=== PATIENT | male | born 1960 | race Caucasian/White ===

== ENCOUNTER 2016-11-11 18:35 | Emergency (ER) | payer MEDICAID ==
[~2016-11-11] VITALS: Ht 175.3 cm; Wt 75.0 kg
[2016-11-11] MEDS ORDERED: ONDANSETRON 2MG/ML, 2ML ONE (18:57)
[2016-11-11] MEDS ORDERED: MORPHINE SULFATE 4 MG/ML, 1ML ONE (18:57)
[2016-11-11] MEDS ORDERED: SODIUM CHLORIDE 0.9% 1,000ML IVBOLUS ONE (19:00)
[2016-11-11] MEDS ORDERED: ONDANSETRON 2MG/ML, 2ML IVPush ONE (19:00)
[2016-11-11] MEDS ORDERED: MORPHINE SULFATE 4 MG/ML, 1ML IVPush PRN (19:00)
[2016-11-11] MEDS ORDERED: SODIUM CHLORIDE FLUSH 10ML SYR IVF ONE (19:00)
[2016-11-11 19:21] LABS: ASPARTATE AMINO TRANSFERASE 50 U/L (15-37); BLOOD UREA NITROGEN 6 mg/dL (7-18)
[2016-11-11 20:18] VITALS: BP 140/82
== END 2016-11-11 20:36 | disposition home or self-care (01) ==
LOC: ED 19:46
DX: R10.11 Right upper quadrant pain (principal); R10.84 Generalized abdominal pain; B18.2 Chronic viral hepatitis C; K74.60 Unspecified cirrhosis of liver; E11.9 Type 2 diabetes mellitus without complications; I10 Essential (primary) hypertension; Z87.891 Personal history of nicotine dependence
CPT/HCPCS: 36415; 76700; 80053; 83605; 83690; 84145; 85025; 85610; 85730; 96361; 96374; 96375; 99285; J2405; J7030

== ENCOUNTER 2017-01-16 08:35 | Inpatient (IN) | payer MEDICAID ==
[~2017-01-16] VITALS: Ht 175.3 cm; Wt 76.3 kg
[2017-01-16] MEDS ORDERED: SODIUM CHLORIDE 0.9% 1,000 ML IV ONE (08:52)
[2017-01-16] MEDS ORDERED: ONDANSETRON 2MG/ML, 2ML ONE ×2 (08:57→10:37)
[2017-01-16] MEDS ORDERED: FAMOTIDINE 20 MG/2 ML ONE (08:57)
[2017-01-16] MEDS ORDERED: SODIUM CHLORIDE FLUSH 10ML SYR IVF ONE (09:00)
[2017-01-16] MEDS ORDERED: ONDANSETRON 2MG/ML, 2ML IVPush ONE ×2 (09:00→11:00)
[2017-01-16] MEDS ORDERED: FAMOTIDINE 20 MG/2 ML IVP ONE (09:00)
[2017-01-16] MEDS ORDERED: CEFTRIAXONE PMX 1GM/50ML 50 ML IV ONE (09:30)
[2017-01-16 09:51] LABS: ASPARTATE AMINO TRANSFERASE 70 U/L (15-37); BLOOD UREA NITROGEN 12 mg/dL (7-18)
[2017-01-16] MEDS ORDERED: METF500T4 PO (10:20)
[2017-01-16 10:21] LABS: HEMATOCRIT 46.6 % (39.2-51.8)
[2017-01-16] MEDS ORDERED: MORPHINE SULFATE 4 MG/ML, 1ML ONE (10:37)
[2017-01-16] MEDS ORDERED: CEFTRIAXONE PMX 1GM/50ML 50 ML ONE (10:40)
[2017-01-16] MEDS ORDERED: morphine SULFATE 10 MG/ML, 1ML IVPush ONE (11:00)
[2017-01-16] MEDS ORDERED: SODIUM CHLORIDE 0.9% 1,000ML IVBOLUS ONE (11:00)
[2017-01-16] MEDS ORDERED: LIDOCAINE 1%, 20ML ONE (11:24)
[2017-01-16] MEDS ORDERED: CALCIUM GLUCONATE 0.46MEQ/1ML IVPush ONE (13:00)
[2017-01-16] MEDS ORDERED: CALCIUM GLUCONATE 4.6 MEQ/10 ML ONE (13:01)
[2017-01-16] MEDS ORDERED: CEFTRIAXONE PMX 2GM/50ML 50 ML IV SCH (14:30)
[2017-01-16] MEDS ORDERED: hydrALAzine 20 MG/ML, 1ML IV PRN (14:30)
[2017-01-16] MEDS ORDERED: METRONIDAZOLE PMX 500MG/100ML 100 ML ONE (14:46)
[2017-01-16] MEDS ORDERED: CEFTRIAXONE PMX 2GM/50ML 50 ML ONE (14:46)
[2017-01-16] MEDS: METRONIDAZOLE PMX 500MG/100ML 100 ML IV SCH ×2 (14:55→22:12)
[2017-01-16] MEDS ORDERED: LORazepam 2 MG/ML, 1ML IVPush PRN (15:00)
[2017-01-16] MEDS: LACTULOSE 20 GM/30 ML UDC PO SCH ×2 (16:00→20:30)
[2017-01-16 16:30] VITALS: BP 180/107
[2017-01-16 17:08] VITALS: BP 159/93
[2017-01-16] MEDS ORDERED: METOPROLOL TARTRATE 50 MG TABLET PO SCH (18:00)
[2017-01-16 18:14] VITALS: BP 169/89
[2017-01-16] MEDS: ONDANSETRON 2MG/ML, 2ML IVPush PRN (18:37)
[2017-01-16] MEDS: LISINOPRIL 20 MG TABLET PO SCH (20:29)
[2017-01-16] MEDS: RIFAXIMIN 550 MG TABLET PO SCH (20:29)
[2017-01-16] MEDS: morphine SULFATE 10 MG/ML, 1ML IVPush PRN (20:30)
[2017-01-17 01:09] VITALS: BP 119/63
[2017-01-17] MEDS: LACTULOSE 20 GM/30 ML UDC PO SCH ×4 (05:12→20:49)
[2017-01-17 05:58] LABS: HEMATOCRIT 43.5 % (39.2-51.8); HEMOGLOBIN 14.9 g/dL (13.7-18.0); WHITE BLOOD COUNT 9.1 x10^3/uL (3.4-10)
[2017-01-17] MEDS: METRONIDAZOLE PMX 500MG/100ML 100 ML IV SCH ×3 (06:05→22:30)
[2017-01-17 06:24] LABS: ASPARTATE AMINO TRANSFERASE 35 U/L (15-37); BLOOD UREA NITROGEN 17 mg/dL (7-18)
[2017-01-17 08:00] VITALS: BP 120/66
[2017-01-17] MEDS ORDERED: MORPHINE SULFATE 4 MG/ML, 1ML ONE ×2 (08:52→14:48)
[2017-01-17] MEDS: RIFAXIMIN 550 MG TABLET PO SCH ×2 (08:57→20:49)
[2017-01-17] MEDS: morphine SULFATE 10 MG/ML, 1ML IVPush PRN ×3 (08:57→20:49)
[2017-01-17] MEDS: ZINC SULFATE 220 MG CAPSULE PO SCH (08:57)
[2017-01-17] MEDS: FUROSEMIDE 40 MG TABLET PO SCH (08:58)
[2017-01-17] MEDS: SPIRONOLACTONE 100 MG TABLET PO SCH (08:58)
[2017-01-17] MEDS: LISINOPRIL 20 MG TABLET PO SCH ×2 (08:58→20:50)
[2017-01-17 11:16] VITALS: BP 120/66
[2017-01-17] MEDS: CEFTRIAXONE PMX 2GM/50ML 50 ML IV SCH (11:17)
[2017-01-17 13:31] VITALS: BP 137/79
[2017-01-17 19:18] VITALS: BP 128/70
[2017-01-18 03:34] VITALS: BP 152/81
[2017-01-18] MEDS: LACTULOSE 20 GM/30 ML UDC PO SCH ×4 (05:20→19:58)
[2017-01-18] MEDS: METRONIDAZOLE PMX 500MG/100ML 100 ML IV SCH ×3 (06:01→22:29)
[2017-01-18 06:28] LABS: HEMATOCRIT 42.8 % (39.2-51.8); HEMOGLOBIN 14.8 g/dL (13.7-18.0); WHITE BLOOD COUNT 5.4 x10^3/uL (3.4-10)
[2017-01-18 06:32] VITALS: BP 135/73
[2017-01-18 06:53] LABS: ASPARTATE AMINO TRANSFERASE 34 U/L (15-37); BLOOD UREA NITROGEN 16 mg/dL (7-18)
[2017-01-18] MEDS: SPIRONOLACTONE 100 MG TABLET PO SCH (09:18)
[2017-01-18] MEDS: RIFAXIMIN 550 MG TABLET PO SCH ×2 (09:18→19:58)
[2017-01-18] MEDS: FUROSEMIDE 40 MG TABLET PO SCH (09:19)
[2017-01-18] MEDS: LISINOPRIL 20 MG TABLET PO SCH ×2 (09:19→19:58)
[2017-01-18] MEDS: ZINC SULFATE 220 MG CAPSULE PO SCH (09:19)
[2017-01-18] MEDS: CEFTRIAXONE PMX 2GM/50ML 50 ML IV SCH (12:38)
[2017-01-18 14:30] VITALS: BP 129/78
[2017-01-18 18:25] VITALS: BP 132/72
[2017-01-18] MEDS ORDERED: POTASSIUM PHOSPHATE 44 MEQ in SODIUM CHLORIDE 0.9% 500 ML IV ONE (19:00)
[2017-01-18] MEDS: morphine SULFATE 10 MG/ML, 1ML IVPush PRN (19:59)
[2017-01-19 00:53] VITALS: BP 132/80
[2017-01-19] MEDS: LACTULOSE 20 GM/30 ML UDC PO SCH ×4 (05:43→22:44)
[2017-01-19] MEDS: METRONIDAZOLE PMX 500MG/100ML 100 ML IV SCH ×3 (06:20→22:44)
[2017-01-19 06:27] LABS: ASPARTATE AMINO TRANSFERASE 46 U/L (15-37); BLOOD UREA NITROGEN 11 mg/dL (7-18)
[2017-01-19 07:37] VITALS: BP 113/60
[2017-01-19] MEDS: SPIRONOLACTONE 100 MG TABLET PO SCH (08:41)
[2017-01-19] MEDS: RIFAXIMIN 550 MG TABLET PO SCH ×3 (08:41→20:05)
[2017-01-19] MEDS: LISINOPRIL 20 MG TABLET PO SCH ×2 (08:41→20:05)
[2017-01-19] MEDS: ZINC SULFATE 220 MG CAPSULE PO SCH (08:41)
[2017-01-19] MEDS: FUROSEMIDE 40 MG TABLET PO SCH (09:00)
[2017-01-19] MEDS: CEFTRIAXONE PMX 2GM/50ML 50 ML IV SCH (09:52)
[2017-01-19] MEDS: morphine SULFATE 10 MG/ML, 1ML IVPush PRN ×3 (13:24→20:05)
[2017-01-19 14:13] VITALS: BP 141/92
[2017-01-19 18:42] VITALS: BP 131/75
[2017-01-20 01:18] VITALS: BP 149/82
[2017-01-20] MEDS: morphine SULFATE 10 MG/ML, 1ML IVPush PRN ×5 (02:19→19:55)
[2017-01-20 06:24] LABS: BLOOD UREA NITROGEN 8 mg/dL (7-18)
[2017-01-20 06:28] LABS: ASPARTATE AMINO TRANSFERASE 67 U/L (15-37)
[2017-01-20] MEDS: LACTULOSE 20 GM/30 ML UDC PO SCH ×5 (06:33→19:56)
[2017-01-20] MEDS: METRONIDAZOLE PMX 500MG/100ML 100 ML IV SCH ×3 (06:33→22:31)
[2017-01-20 08:15] VITALS: BP 127/70
[2017-01-20] MEDS: RIFAXIMIN 550 MG TABLET PO SCH ×2 (08:55→19:55)
[2017-01-20] MEDS: ZINC SULFATE 220 MG CAPSULE PO SCH (08:55)
[2017-01-20] MEDS: LISINOPRIL 20 MG TABLET PO SCH ×2 (08:55→19:56)
[2017-01-20] MEDS: FUROSEMIDE 40 MG TABLET PO SCH (08:56)
[2017-01-20] MEDS: SPIRONOLACTONE 100 MG TABLET PO SCH (08:56)
[2017-01-20] MEDS: CEFTRIAXONE PMX 2GM/50ML 50 ML IV SCH (10:14)
[2017-01-20] MEDS ORDERED: MORPHINE SULFATE 4 MG/ML, 1ML ONE ×2 (10:19→14:44)
[2017-01-20 13:30] VITALS: BP 133/67
[2017-01-20 19:26] VITALS: BP 120/73
[2017-01-21] MEDS: morphine SULFATE 10 MG/ML, 1ML IVPush PRN ×5 (01:08→20:01)
[2017-01-21 01:13] VITALS: BP 129/72
[2017-01-21] MEDS: METRONIDAZOLE PMX 500MG/100ML 100 ML IV SCH ×3 (05:37→22:26)
[2017-01-21] MEDS: LACTULOSE 20 GM/30 ML UDC PO SCH ×4 (05:38→21:00)
[2017-01-21 08:15] VITALS: BP 134/78
[2017-01-21] MEDS: CEFTRIAXONE PMX 2GM/50ML 50 ML IV SCH (09:37)
[2017-01-21] MEDS: RIFAXIMIN 550 MG TABLET PO SCH ×2 (09:37→20:00)
[2017-01-21] MEDS: SPIRONOLACTONE 100 MG TABLET PO SCH (09:37)
[2017-01-21] MEDS: LISINOPRIL 20 MG TABLET PO SCH ×2 (09:39→20:01)
[2017-01-21] MEDS: ZINC SULFATE 220 MG CAPSULE PO SCH (09:39)
[2017-01-21] MEDS: FUROSEMIDE 40 MG TABLET PO SCH (09:39)
[2017-01-21 14:30] VITALS: BP 119/69
[2017-01-21 21:51] VITALS: BP 130/75
[2017-01-22 01:44] VITALS: BP 108/65
[2017-01-22] MEDS: morphine SULFATE 10 MG/ML, 1ML IVPush PRN ×6 (01:45→23:05)
[2017-01-22] MEDS: METRONIDAZOLE PMX 500MG/100ML 100 ML IV SCH ×4 (05:56→21:14)
[2017-01-22] MEDS: LACTULOSE 20 GM/30 ML UDC PO SCH ×4 (06:00→21:00)
[2017-01-22 08:40] VITALS: BP 110/71
[2017-01-22] MEDS: RIFAXIMIN 550 MG TABLET PO SCH ×2 (09:07→21:14)
[2017-01-22] MEDS: SPIRONOLACTONE 100 MG TABLET PO SCH (09:07)
[2017-01-22] MEDS: ZINC SULFATE 220 MG CAPSULE PO SCH (09:08)
[2017-01-22] MEDS: LISINOPRIL 20 MG TABLET PO SCH ×2 (09:08→21:14)
[2017-01-22] MEDS: FUROSEMIDE 40 MG TABLET PO SCH (09:08)
[2017-01-22] MEDS: CEFTRIAXONE PMX 2GM/50ML 50 ML IV SCH (10:00)
[2017-01-22] MEDS ORDERED: MORPHINE SULFATE 4 MG/ML, 1ML ONE ×3 (10:06→18:32)
[2017-01-22 13:50] VITALS: BP 105/72
[2017-01-22 15:04] LABS: HEMATOCRIT 47.2 % (39.2-51.8); HEMOGLOBIN 15.9 g/dL (13.7-18.0)
[2017-01-22 19:33] VITALS: BP 114/70
[2017-01-23 02:37] VITALS: BP 113/76
[2017-01-23] MEDS: METRONIDAZOLE PMX 500MG/100ML 100 ML IV SCH ×2 (05:56→13:48)
[2017-01-23] MEDS: LACTULOSE 20 GM/30 ML UDC PO SCH ×2 (06:00→10:11)
[2017-01-23] MEDS: morphine SULFATE 10 MG/ML, 1ML IVPush PRN (06:16)
[2017-01-23 07:30] VITALS: BP 118/69
[2017-01-23] MEDS: SPIRONOLACTONE 100 MG TABLET PO SCH (08:09)
[2017-01-23] MEDS: RIFAXIMIN 550 MG TABLET PO SCH (08:09)
[2017-01-23] MEDS: FUROSEMIDE 40 MG TABLET PO SCH (08:09)
[2017-01-23] MEDS: ZINC SULFATE 220 MG CAPSULE PO SCH (08:09)
[2017-01-23] MEDS: LISINOPRIL 20 MG TABLET PO SCH (08:10)
[2017-01-23] MEDS ORDERED: RIFA550T4 PO (09:14)
[2017-01-23] MEDS ORDERED: FURO40TA6 PO (09:14)
[2017-01-23] MEDS ORDERED: LACT20SO13 PO (09:14)
[2017-01-23] MEDS ORDERED: LISI-170 PO (09:14)
[2017-01-23] MEDS ORDERED: SPIR100T PO (09:14)
[2017-01-23] MEDS ORDERED: TRAM50TA2 PO (09:14)
[2017-01-23] MEDS ORDERED: ZINC220C5 PO (09:14)
[2017-01-23] MEDS ORDERED: FOLI-17 PO (09:20)
[2017-01-23] MEDS ORDERED: METR500T PO (09:20)
[2017-01-23] MEDS ORDERED: THIA100T10 PO (09:20)
[2017-01-23] MEDS ORDERED: MAGN400T26 PO (09:20)
[2017-01-23] MEDS ORDERED: MULT-412 PO (09:20)
[2017-01-23] MEDS ORDERED: ONDA4TAB13 SL (09:20)
[2017-01-23] MEDS ORDERED: CEFT1FRO2 IV (09:28)
[2017-01-23 09:53] LABS: HEMATOCRIT 45.8 % (39.2-51.8); HEMOGLOBIN 15.6 g/dL (13.7-18.0)
[2017-01-23] MEDS: ONDANSETRON 2MG/ML, 2ML IVPush PRN (09:54)
[2017-01-23] MEDS: CEFTRIAXONE PMX 2GM/50ML 50 ML IV SCH (10:09)
[2017-01-23 13:30] VITALS: BP 103/63
[2017-01-23] MEDS ORDERED: PNEUMOCOCCAL 23 VACCINE IM-VACC ONE (15:00)
== END 2017-01-23 15:42 | disposition home or self-care (01) | DRG 871 ==
LOC: ED 09:24 → EDIP 12:44 → 4WST 16:14
PROVIDERS: ADMIT Internal Medicine; ATTEND Internal Medicine
PROC: 0W9G3ZX Drainage of Peritoneal Cavity, Percutaneous Approach, Diagnostic (ICD-10-PCS; principal; 2017-01-16)
DX: A41.51 Sepsis due to Escherichia coli [E. coli] (principal); K65.9 Peritonitis, unspecified; E43 Unspecified severe protein-calorie malnutrition; K76.6 Portal hypertension; R18.8 Other ascites; K72.90 Hepatic failure, unspecified without coma; K74.60 Unspecified cirrhosis of liver; B18.2 Chronic viral hepatitis C; E11.9 Type 2 diabetes mellitus without complications; I10 Essential (primary) hypertension; I86.1 Scrotal varices; Z80.0 Family history of malignant neoplasm of digestive organs; Z59.0 Homelessness; Z68.24 Body mass index [BMI] 24.0-24.9, adult
CPT/HCPCS: 36415; 49083; 74177; 80053; 81003; 82042; 82140; 83036; 83605; 83615; 83690; 83735; 84100; 84439; 84443; 85014; 85018; 85025; 85610; 85730; 87040; 87070; 87077; 87186; 87205; 89051; 90732; 93005; 96361; 96365; 96367; 96368; 96375; 96376; J0696; J2405; J3490; J0360; J2270; J7030; J7040; S0028

== ENCOUNTER 2017-02-20 14:23 | Inpatient (IN) | payer MEDICAID ==
[~2017-02-20] VITALS: Ht 175.3 cm; Wt 77.9 kg
[~2017-02-20 14:23] MED LIST: CEFT1FRO2 IV; FOLI-17 PO; FURO40TA6 PO; LACT20SO13 PO; LISI-170 PO; MAGN400T26 PO; METF500T4 PO; METR500T PO; MULT-412 PO; ONDA4TAB13 SL; RIFA550T4 PO; SPIR100T PO; THIA100T10 PO; TRAM50TA2 PO; ZINC220C5 PO
[2017-02-20] MEDS ORDERED: PANTOPRAZOLE 80 MG in SODIUM CHLORIDE 0.9% 100 ML IV SCH (14:50)
[2017-02-20] MEDS ORDERED: OCTREOTIDE 500 MCG in SODIUM CHLORIDE 0.9% 249 ML IV PRN (14:50)
[2017-02-20] MEDS ORDERED: OCTREOTIDE 100MCG/ML, 1ML (0.1MG/ML) ONE (15:12)
[2017-02-20 15:19] LABS: HEMATOCRIT 43.6 % (39.2-51.8); HEMOGLOBIN 15.1 g/dL (13.7-18.0); WHITE BLOOD COUNT 4.1 x10^3/uL (3.4-10)
[2017-02-20 15:30] LABS: BLOOD UREA NITROGEN 14 mg/dL (7-18)
[2017-02-20 15:32] LABS: ASPARTATE AMINO TRANSFERASE 29 U/L (15-37)
[2017-02-20] MEDS ORDERED: SODIUM CHLORIDE 0.9% 1,000 ML IV ONE (16:00)
[2017-02-20] MEDS ORDERED: SODIUM CHLORIDE FLUSH 10ML SYR IVF ONE (16:00)
[2017-02-20] MEDS ORDERED: PANTOPRAZOLE 80 MG in SODIUM CHLORIDE 0.9% 50 ML IVPB ONE (16:00)
[2017-02-20] MEDS ORDERED: OCTREOTIDE 100MCG/ML, 1ML (0.1MG/ML) IV ONE (16:00)
[2017-02-20] MEDS ORDERED: PROPOFOL 10 MG/ML, 20ML ONE (16:24)
[2017-02-20] MEDS ORDERED: CEFTRIAXONE PMX 1GM/50ML 50 ML ONE (16:56)
[2017-02-20] MEDS ORDERED: ENALAPRILAT 1.25 MG/ML, 2ML IVPush PRN (17:00)
[2017-02-20] MEDS ORDERED: DOCUSATE 100 MG CAPSULE PO PRN (17:00)
[2017-02-20] MEDS: CEFTRIAXONE PMX 2GM/50ML 50 ML IV SCH (17:00)
[2017-02-20] MEDS ORDERED: POLYETHYLENE GLYCOL 17 GM PACKET PO PRN (17:00)
[2017-02-20] MEDS ORDERED: D5%-0.9% NACL+KCL 20MEQ 1,000 ML IV SCH (17:00)
[2017-02-20] MEDS ORDERED: hydrALAzine 20 MG/ML, 1ML IVPush PRN (17:00)
[2017-02-20] MEDS ORDERED: ONDANSETRON 2MG/ML, 2ML IVPush PRN (17:00)
[2017-02-20] MEDS ORDERED: LABETALOL 5MG/ML, 20ML IVPush PRN (17:00)
[2017-02-20] MEDS ORDERED: BISACODYL 10 MG SUPP PR PRN (17:00)
[2017-02-20] MEDS ORDERED: OXYcodone IR 5MG TABLET PO PRN (17:00)
[2017-02-20] MEDS ORDERED: METRONIDAZOLE PMX 500MG/100ML 100 ML ONE (17:04)
[2017-02-20] MEDS ORDERED: CEFTRIAXONE PMX 2GM/50ML 50 ML ONE (17:06)
[2017-02-20] MEDS ORDERED: morphine SULFATE 10 MG/ML, 1ML ONE (17:14)
[2017-02-20] MEDS: morphine SULFATE 10 MG/ML, 1ML IVPush PRN ×3 (17:19→21:32)
[2017-02-20] MEDS ORDERED: CEFTRIAXONE PMX 1GM/50ML 50 ML IV ONE (17:30)
[2017-02-20 20:00] VITALS: BP 150/73
[2017-02-20 20:06] LABS: HEMATOCRIT 44.2 % (39.2-51.8); HEMOGLOBIN 15.1 g/dL (13.7-18.0)
[2017-02-20] MEDS: LACTULOSE 20 GM/30 ML UDC PO SCH (21:00)
[2017-02-20] MEDS: LISINOPRIL 20 MG TABLET PO SCH ×2 (21:00→21:15)
[2017-02-20] MEDS: RIFAXIMIN 550 MG TABLET PO SCH (21:15)
[2017-02-20] MEDS: MAGNESIUM OXIDE 400 MG TABLET PO SCH (21:15)
[2017-02-20] MEDS: METRONIDAZOLE PMX 500MG/100ML 100 ML IV SCH (23:04)
[2017-02-20 23:45] VITALS: BP 164/99
[2017-02-21] MEDS: morphine SULFATE 10 MG/ML, 1ML IVPush PRN ×7 (00:43→23:20)
[2017-02-21 02:00] VITALS: BP 100/64
[2017-02-21 02:43] LABS: HEMATOCRIT 41.5 % (39.2-51.8); HEMOGLOBIN 14.3 g/dL (13.7-18.0)
[2017-02-21 02:51] LABS: ASPARTATE AMINO TRANSFERASE 30 U/L (15-37); BLOOD UREA NITROGEN 17 mg/dL (7-18)
[2017-02-21] MEDS: METRONIDAZOLE PMX 500MG/100ML 100 ML IV SCH ×3 (06:02→23:20)
[2017-02-21] MEDS ORDERED: PANTOPRAZOLE 40 MG IV IVPush SCH (07:00)
[2017-02-21 07:33] VITALS: BP 118/69
[2017-02-21 08:11] LABS: HEMATOCRIT 43.5 % (39.2-51.8); HEMOGLOBIN 14.8 g/dL (13.7-18.0)
[2017-02-21] MEDS: LACTULOSE 20 GM/30 ML UDC PO SCH ×2 (08:49→20:42)
[2017-02-21] MEDS: LISINOPRIL 20 MG TABLET PO SCH ×2 (08:49→20:10)
[2017-02-21] MEDS: SPIRONOLACTONE 100 MG TABLET PO SCH (08:49)
[2017-02-21] MEDS: RIFAXIMIN 550 MG TABLET PO SCH ×2 (08:49→20:11)
[2017-02-21] MEDS: MAGNESIUM OXIDE 400 MG TABLET PO SCH ×2 (08:49→20:10)
[2017-02-21] MEDS: FOLIC ACID 1 MG TABLET PO SCH (08:49)
[2017-02-21 12:10] LABS: DAU SCREEN DISCLAIMER
[2017-02-21 12:25] VITALS: BP 110/68
[2017-02-21 14:14] LABS: HEMOGLOBIN 14.8 g/dL (13.7-18.0)
[2017-02-21] MEDS ORDERED: OCTREOTIDE 500 MCG in SODIUM CHLORIDE 0.9% 249 ML IV PRN (14:50)
[2017-02-21] MEDS: CEFTRIAXONE PMX 2GM/50ML 50 ML IV SCH (17:30)
[2017-02-21 19:56] VITALS: BP 149/75
[2017-02-21] MEDS: PANTOPRAZOLE 40 MG IV IVPush SCH (20:10)
[2017-02-22 03:16] VITALS: BP 130/77
[2017-02-22] MEDS: morphine SULFATE 10 MG/ML, 1ML IVPush PRN (04:05)
[2017-02-22 06:21] LABS: HEMATOCRIT 41.2 % (39.2-51.8); HEMOGLOBIN 14.1 g/dL (13.7-18.0); WHITE BLOOD COUNT 3.3 x10^3/uL (3.4-10)
[2017-02-22] MEDS: METRONIDAZOLE PMX 500MG/100ML 100 ML IV SCH ×2 (06:22→15:26)
[2017-02-22 06:28] LABS: ASPARTATE AMINO TRANSFERASE 44 U/L (15-37); BLOOD UREA NITROGEN 12 mg/dL (7-18)
[2017-02-22] MEDS: SPIRONOLACTONE 100 MG TABLET PO SCH (08:35)
[2017-02-22] MEDS: FOLIC ACID 1 MG TABLET PO SCH (08:36)
[2017-02-22] MEDS: MAGNESIUM OXIDE 400 MG TABLET PO SCH (08:36)
[2017-02-22] MEDS: LISINOPRIL 20 MG TABLET PO SCH (08:37)
[2017-02-22] MEDS: LACTULOSE 20 GM/30 ML UDC PO SCH (08:38)
[2017-02-22] MEDS: RIFAXIMIN 550 MG TABLET PO SCH (08:38)
[2017-02-22] MEDS: PANTOPRAZOLE 40 MG IV IVPush SCH (08:40)
[2017-02-22 08:42] VITALS: BP 134/79
[2017-02-22 09:00] VITALS: BP 124/77
[2017-02-22] MEDS ORDERED: POTASSIUM CHLORIDE 20 MEQ TAB.ER.PRT PO ONE (10:30)
[2017-02-22 13:42] VITALS: BP 154/83
[2017-02-22] MEDS ORDERED: OMEP-110 PO (14:59)
[2017-02-22] MEDS ORDERED: CEFD300C37 PO (14:59)
[2017-02-22] MEDS ORDERED: METR500T PO (14:59)
[2017-02-22] MEDS ORDERED: OXYC5TAB3 PO (14:59)
[2017-02-22] MEDS ORDERED: CEFTRIAXONE 2 GM in DEXTROSE 5% 50 ML IV SCH (16:00)
== END 2017-02-22 17:46 | disposition home or self-care (01) | DRG 441 ==
LOC: ED 16:18 → EDIP 16:46 → 4EST 18:00
PROVIDERS: ADMIT Internal Medicine; ATTEND Internal Medicine
PROC: 06L38CZ Occlusion of Esophageal Vein with Extraluminal Device, Via Natural or Artificial Opening Endoscopic (ICD-10-PCS; principal; 2017-02-20 16:30)
DX: K72.90 Hepatic failure, unspecified without coma (principal); I85.01 Esophageal varices with bleeding; K25.4 Chronic or unspecified gastric ulcer with hemorrhage; K76.6 Portal hypertension; F11.23 Opioid dependence with withdrawal; J98.11 Atelectasis; K70.31 Alcoholic cirrhosis of liver with ascites; B18.2 Chronic viral hepatitis C; E11.9 Type 2 diabetes mellitus without complications; F15.10 Other stimulant abuse, uncomplicated; G89.29 Other chronic pain; I10 Essential (primary) hypertension; K31.89 Other diseases of stomach and duodenum; Z72.0 Tobacco use; Z80.0 Family history of malignant neoplasm of digestive organs
CPT/HCPCS: 36415; 74177; 80053; 80061; 80307; 81001; 82140; 83036; 83690; 83735; 84439; 84443; 85014; 85018; 85025; 85610; 85651; 86850; 86900; 96365; 96366; 96368; 99152; J0696; J2354; C9113; G0479; J2270; J7030; J7050

== ENCOUNTER 2017-10-22 11:36 | Emergency (ER) | payer MEDICAID ==
[~2017-10-22] VITALS: Ht 175.3 cm; Wt 78.0 kg
[~2017-10-22 11:36] MED LIST changes: +CEFD300C37 PO; -METF500T4 PO; +METF500T5 PO; +OMEP-110 PO; +OXYC5TAB3 PO
[2017-10-22 11:38] VITALS: BP 172/89
[2017-10-22] MEDS ORDERED: LORA2TAB PO (14:07)
[2017-10-22] MEDS ORDERED: METH-356 PO ×2 (14:07)
[2017-10-22] MEDS ORDERED: PROM25SU34 PO (14:07)
[2017-10-22] MEDS ORDERED: OXYC20OR8 PO (14:07)
[2017-10-22] MEDS ORDERED: MORPHINE SULFATE 4 MG/ML, 1ML ONE (14:33)
== END 2017-10-22 13:28 | disposition left against medical advice (07) ==
LOC: ED 13:22
DX: M54.9 Dorsalgia, unspecified (principal); Z53.21 Procedure and treatment not carried out due to patient leaving prior to being seen by health care provider

== ENCOUNTER 2017-10-22 13:35 | Inpatient (IN) | payer MEDICAID ==
[~2017-10-22] VITALS: Ht 175.3 cm; Wt 83.1 kg
[2017-10-22] MEDS ORDERED: OXYC20OR8 PO (14:07)
[2017-10-22] MEDS ORDERED: METH-356 PO ×2 (14:07)
[2017-10-22] MEDS ORDERED: LORA2TAB PO (14:07)
[2017-10-22] MEDS ORDERED: PROM25SU34 PO (14:07)
[2017-10-22] MEDS ORDERED: SODIUM CHLORIDE 0.9% 1,000ML IVBOLUS ONE (14:30)
[2017-10-22] MEDS ORDERED: MORPHINE SULFATE 4 MG/ML, 1ML IVPush PRN (14:30)
[2017-10-22] MEDS ORDERED: SODIUM CHLORIDE FLUSH 10ML SYR IVF ONE (14:30)
[2017-10-22] MEDS ORDERED: LIDOCAINE-MPF 2% ,5ML ONE (14:34)
[2017-10-22 14:49] LABS: MEAN CORPUSCULAR HEMOGLOBIN 30.2 pg (27.5-34.5); MEAN CORPUSCULAR HGB CONC 34.5 g/dL (33.2-36.2); MEAN CORPUSCULAR VOLUME 87.8 fL (81-97); MEAN PLATELET VOLUME 8.1 fL (7.4-10.4); PLATELET COUNT 64 x10^3/uL (130-400); RED BLOOD COUNT 4.94 x10^6/uL (4.38-5.82)
[2017-10-22 14:54] LABS: ALANINE AMINOTRANSFERASE 89 U/L (12-78); ALBUMIN 3.3 g/dL (3.4-5.0); ANION GAP 10 mmol/L (5-15); CALCIUM 8.1 mg/dL (8.5-10.1); CHLORIDE 110 mmol/L (98-107); CREATININE 0.79 mg/dL (0.7-1.3)
[2017-10-22 14:56] LABS: ALKALINE PHOSPHATASE 93 U/L (45-117); BILIRUBIN,TOTAL 7.2 mg/dL (0.2-1.0); TOTAL PROTEIN 5.9 g/dL (6.4-8.2)
[2017-10-22 15:04] LABS: INTERNATIONAL NORMALIZED RATIO 1.24 (0.93-1.1); PROTHROMBIN TIME 12.8 Seconds (9.6-11.5)
[2017-10-22 15:10] LABS: BASOPHILS # (AUTO) 0.01 x10^3/uL (0-0.1); BASOPHILS % (AUTO) 0 % (0-1); EOSINOPHILS # (AUTO) 0.05 x10^3/uL (0-0.4); EOSINOPHILS % (AUTO) 1 % (1-7); LYMPHOCYTES # (AUTO) 0.67 x10^3/uL (1-3.4); LYMPHOCYTES % (AUTO) 16 % (22-44); MD SCAN; MONOCYTES # (AUTO) 0.41 x10^3/uL (0.2-0.8); MONOCYTES % (AUTO) 10 % (2-9); NEUTROPHILS # (AUTO) 3.03 x10^3/uL (1.8-6.8); NEUTROPHILS % (AUTO) 73 % (42-75)
[2017-10-22] MEDS ORDERED: OMNIPAQUE 350 MG/ML, 100ML BOTTLE ONE (15:18)
[2017-10-22 15:35] LABS: ACETONE, SERUM Negative (Negative)
[2017-10-22] MEDS ORDERED: METRONIDAZOLE PMX 500MG/100ML 100 ML ONE (16:41)
[2017-10-22] MEDS ORDERED: METRONIDAZOLE PMX 500MG/100ML 100 ML IV ONE (17:00)
[2017-10-22] MEDS ORDERED: AMPICILLIN/SULBACTAM 3 GM in SODIUM CHLORIDE 0.9% 100 ML IV ONE (17:00)
[2017-10-22] MEDS ORDERED: SODIUM CHLORIDE 0.9% 1,000 ML IV SCH (17:09)
[2017-10-22] MEDS ORDERED: hydrALAzine 20 MG/ML, 1ML IVPush PRN (17:30)
[2017-10-22] MEDS ORDERED: ONDANSETRON 2MG/ML, 2ML IVPush PRN (17:30)
[2017-10-22] MEDS ORDERED: OXYcodone IR 5MG TABLET PO PRN (17:30)
[2017-10-22] MEDS ORDERED: POTASSIUM CHLORIDE 40 MEQ in SODIUM CHLORIDE 0.9% 500 ML IV ONE (17:30)
[2017-10-22 17:45] VITALS: BP 151/78
[2017-10-22] MEDS ORDERED: ACETAMINOPHEN 325 MG TABLET PO PRN (18:00)
[2017-10-22 18:07] LABS: MICROSCOPIC NOT IND
[2017-10-22 18:12] LABS: CULTURE INDICATED? NO
[2017-10-22 20:01] VITALS: BP 155/89
[2017-10-22] MEDS: PIPERACILLIN/TAZO/PMX 4.5GM 100 ML IV SCH (21:33)
[2017-10-23 02:02] VITALS: BP 137/79
[2017-10-23] MEDS: morphine SULFATE 10 MG/ML, 1ML IVPush PRN ×4 (03:36→21:10)
[2017-10-23] MEDS: PIPERACILLIN/TAZO/PMX 4.5GM 100 ML IV SCH ×4 (04:09→22:13)
[2017-10-23 05:33] LABS: ALBUMIN 2.9 g/dL (3.4-5.0); ANION GAP 8 mmol/L (5-15); CALCIUM 7.8 mg/dL (8.5-10.1); CHLORIDE 112 mmol/L (98-107)
[2017-10-23 05:37] LABS: ALANINE AMINOTRANSFERASE 69 U/L (12-78); ALKALINE PHOSPHATASE 84 U/L (45-117); BILIRUBIN,TOTAL 5.8 mg/dL (0.2-1.0); CREATININE 0.83 mg/dL (0.7-1.3); TOTAL PROTEIN 5.3 g/dL (6.4-8.2)
[2017-10-23 06:11] LABS: MEAN CORPUSCULAR HEMOGLOBIN 30.2 pg (27.5-34.5); MEAN CORPUSCULAR HGB CONC 34.4 g/dL (33.2-36.2); MEAN CORPUSCULAR VOLUME 87.9 fL (81-97); MEAN PLATELET VOLUME 7.9 fL (7.4-10.4); PLATELET COUNT 60 x10^3/uL (130-400); RED BLOOD COUNT 4.66 x10^6/uL (4.38-5.82); RED CELL DISTRIBUTION WIDTH 16.4 % (9.4-14.8)
[2017-10-23 06:13] LABS: BASOPHILS # (AUTO) 0.01 x10^3/uL (0-0.1); BASOPHILS % (AUTO) 0 % (0-1); EOSINOPHILS # (AUTO) 0.13 x10^3/uL (0-0.4); EOSINOPHILS % (AUTO) 5 % (1-7); LYMPHOCYTES # (AUTO) 0.62 x10^3/uL (1-3.4); LYMPHOCYTES % (AUTO) 23 % (22-44); MD SCAN; MONOCYTES # (AUTO) 0.37 x10^3/uL (0.2-0.8); MONOCYTES % (AUTO) 13 % (2-9); NEUTROPHILS # (AUTO) 1.62 x10^3/uL (1.8-6.8); NEUTROPHILS % (AUTO) 59 % (42-75)
[2017-10-23 07:04] VITALS: BP 111/69
[2017-10-23 07:31] LABS: AMPHETAMINE SCREEN, URINE Positive (Negative); BARBITURATE SCREEN, URINE Negative (Negative); BENZODIAZEPINE SCREEN, URINE Negative (Negative); CANNABINOID SCREEN, URINE Negative (Negative); COCAINE SCREEN, URINE Negative (Negative); METHADONE SCREEN, URINE Negative (Negative); OPIATE SCREEN, URINE Positive (Negative)
[2017-10-23] MEDS ORDERED: SINCALIDE (KINEVAC) 5 MCG ONE (10:32)
[2017-10-23] MEDS: HEPARIN 5,000 UNITS/ML, 1ML SQ SCH ×2 (12:30→20:30)
[2017-10-23 14:19] VITALS: BP 115/75
[2017-10-23] MEDS: INSULIN LISPRO 100 UNITS/ML, PEN SQ-INSULIN SCH ×2 (16:00→20:57)
[2017-10-23] MEDS ORDERED: SODIUM CHLORIDE 0.9% 1,000 ML IV SCH (17:09)
[2017-10-23 19:12] VITALS: BP 150/71
[2017-10-24] MEDS: morphine SULFATE 10 MG/ML, 1ML IVPush PRN ×3 (00:12→06:38)
[2017-10-24 02:57] VITALS: BP 124/79
[2017-10-24] MEDS: PIPERACILLIN/TAZO/PMX 4.5GM 100 ML IV SCH ×4 (03:34→20:51)
[2017-10-24] MEDS: HEPARIN 5,000 UNITS/ML, 1ML SQ SCH ×3 (04:14→20:52)
[2017-10-24 05:19] LABS: MEAN CORPUSCULAR HEMOGLOBIN 29.9 pg (27.5-34.5); MEAN CORPUSCULAR HGB CONC 33.5 g/dL (33.2-36.2); MEAN CORPUSCULAR VOLUME 89.4 fL (81-97); RED BLOOD COUNT 4.39 x10^6/uL (4.38-5.82); RED CELL DISTRIBUTION WIDTH 16.3 % (9.4-14.8)
[2017-10-24 05:34] LABS: ALANINE AMINOTRANSFERASE 62 U/L (12-78); ALBUMIN 2.6 g/dL (3.4-5.0); ANION GAP 9 mmol/L (5-15); CALCIUM 7.4 mg/dL (8.5-10.1); CHLORIDE 109 mmol/L (98-107); CREATININE 0.79 mg/dL (0.7-1.3)
[2017-10-24 05:36] LABS: ALKALINE PHOSPHATASE 72 U/L (45-117)
[2017-10-24 06:15] LABS: MD YES
[2017-10-24 06:16] LABS: PLATELET COUNT 56 x10^3/uL (130-400)
[2017-10-24 06:21] LABS: SEG#(MANUAL) 0.98 x10^3/uL (1.8-6.8); SEGS% (MANUAL) 61 % (42-75)
[2017-10-24 06:22] LABS: ANISOCYTOSIS 1+; BASOS#(MANUAL) 0.02 x10^3/uL (0-0.1); BASOS% (MANUAL) 1 % (0-1); EOS#(MANUAL) 0.05 x10^3/uL (0.0-0.4); EOS% (MANUAL) 3 % (1-7); LYMPHS% (MANUAL) 31 % (22-44); MONOS#(MANUAL) 0.05 x10^3/uL (0.3-2.7); MONOS% (MANUAL) 3 % (2-9); POLYCHROMASIA 1+; REACTIVE LYMPHS # (MANUAL) 0.02 x10^3/uL (0-0); REACTIVE LYMPHS % (MANUAL) 1 % (0-0)
[2017-10-24 06:24] LABS: <PLATELET ESTIMATE> DECREASED; <PLT MORPHOLOGY> NORMAL PLT MORPH
[2017-10-24 06:45] VITALS: BP 124/79
[2017-10-24] MEDS: INSULIN LISPRO 100 UNITS/ML, PEN SQ-INSULIN SCH ×4 (07:00→20:52)
[2017-10-24] MEDS: POTASSIUM CHLORIDE 20 MEQ TAB.ER.PRT PO SCH ×2 (09:52→15:56)
[2017-10-24] MEDS: ENOXAPARIN 40 MG/0.4 ML SQ SCH (11:00)
[2017-10-24 13:05] VITALS: BP 137/81
[2017-10-24 18:53] VITALS: BP 139/86
[2017-10-25 01:01] VITALS: BP 140/81
[2017-10-25] MEDS: PIPERACILLIN/TAZO/PMX 4.5GM 100 ML IV SCH ×2 (03:56→10:44)
[2017-10-25] MEDS: HEPARIN 5,000 UNITS/ML, 1ML SQ SCH (03:56)
[2017-10-25 05:40] LABS: MEAN CORPUSCULAR HEMOGLOBIN 30.7 pg (27.5-34.5); MEAN CORPUSCULAR HGB CONC 34.3 g/dL (33.2-36.2); MEAN CORPUSCULAR VOLUME 89.3 fL (81-97); MEAN PLATELET VOLUME 8.5 fL (7.4-10.4); PLATELET COUNT 71 x10^3/uL (130-400); RED BLOOD COUNT 4.53 x10^6/uL (4.38-5.82); RED CELL DISTRIBUTION WIDTH 16.5 % (9.4-14.8)
[2017-10-25 05:51] LABS: ALANINE AMINOTRANSFERASE 70 U/L (12-78); ALBUMIN 2.7 g/dL (3.4-5.0); ANION GAP 7 mmol/L (5-15); CALCIUM 7.8 mg/dL (8.5-10.1); CHLORIDE 109 mmol/L (98-107)
[2017-10-25 05:53] LABS: ALKALINE PHOSPHATASE 73 U/L (45-117); BILIRUBIN,TOTAL 2.7 mg/dL (0.2-1.0); TOTAL PROTEIN 5.3 g/dL (6.4-8.2)
[2017-10-25 06:01] LABS: MD YES
[2017-10-25 06:05] LABS: ANISOCYTOSIS 1+; BAND#(MANUAL) 0.02 x10^3/uL; BANDS%(MANUAL) 1 % (0-7); EOS#(MANUAL) 0.04 x10^3/uL (0.0-0.4); EOS% (MANUAL) 2 % (1-7); LYMPH#(MANUAL) 0.59 x10^3/uL (1-3.4); LYMPHS% (MANUAL) 31 % (22-44); MONOS#(MANUAL) 0.11 x10^3/uL (0.3-2.7); MONOS% (MANUAL) 6 % (2-9); POLYCHROMASIA 1+; SEG#(MANUAL) 1.14 x10^3/uL (1.8-6.8); SEGS% (MANUAL) 60 % (42-75)
[2017-10-25 06:06] LABS: <PLATELET ESTIMATE> DECREASED
[2017-10-25 06:07] LABS: LARGE PLATELETS 1+
[2017-10-25 06:47] VITALS: BP 120/74
[2017-10-25] MEDS: INSULIN LISPRO 100 UNITS/ML, PEN SQ-INSULIN SCH ×2 (07:00→11:00)
[2017-10-25] MEDS: POTASSIUM CHLORIDE 20 MEQ TAB.ER.PRT PO SCH (10:44)
[2017-10-25] MEDS: ENOXAPARIN 40 MG/0.4 ML SQ SCH (11:00)
[2017-10-25 13:59] VITALS: BP 132/84
[2017-10-25] MEDS ORDERED: AMOX1TAB12 PO (16:17)
[2017-10-25] MEDS ORDERED: AMOXICILLIN/CLAV 875-125MG TABLET PO SCH (17:00)
== END 2017-10-25 17:08 | disposition hospice, home (50) | DRG 392 ==
LOC: ED 16:41 → EDIP 16:42 → ED 16:56 → 3NE 17:41
PROVIDERS: ADMIT Internal Medicine; ATTEND Internal Medicine
DX: K52.9 Noninfective gastroenteritis and colitis, unspecified (principal); D68.4 Acquired coagulation factor deficiency; E44.1 Mild protein-calorie malnutrition; R18.8 Other ascites; B18.2 Chronic viral hepatitis C; D69.59 Other secondary thrombocytopenia; D70.9 Neutropenia, unspecified; E11.9 Type 2 diabetes mellitus without complications; E87.6 Hypokalemia; F15.10 Other stimulant abuse, uncomplicated; I10 Essential (primary) hypertension; K70.40 Alcoholic hepatic failure without coma; F19.10 Other psychoactive substance abuse, uncomplicated; K82.9 Disease of gallbladder, unspecified; R16.1 Splenomegaly, not elsewhere classified; K74.60 Unspecified cirrhosis of liver; K82.8 Other specified diseases of gallbladder; Z51.5 Encounter for palliative care; Z68.27 Body mass index [BMI] 27.0-27.9, adult; Z80.0 Family history of malignant neoplasm of digestive organs; Z91.19 Patient's noncompliance with other medical treatment and regimen
CPT/HCPCS: 36415; 49083; 71250; 74177; 74181; 78227; 80053; 80307; 81003; 82010; 82962; 83605; 83690; 84145; 85025; 85610; 85730; 87040; 93005; 96361; 96365; 96375; J0295; J2405; J2543; J3480; J3490; Q9967; A9537; C9898; J2270; J2805; J7030; J7040

== ENCOUNTER 2018-08-13 07:08 | Inpatient (IN) | payer MEDICAID ==
[~2018-08-13] VITALS: Ht 175.3 cm; Wt 78.5 kg
[~2018-08-13 07:08] MED LIST changes: +AMOX1TAB12 PO; +LORA2TAB PO; +METF500T17 PO; -METF500T5 PO; +METH10TA2 PO; +OXYC20OR8 PO; +PROM25SU34 PO
[2018-08-13] MEDS ORDERED: LIDOCAINE-MPF 1%, 5ML ONE (07:42)
--- NOTE | 2018-08-13 07:42 | NUR ---
attempted to verify coverage with [facility] per ERP request, staff to call back with verification.
--- NOTE | 2018-08-13 07:49 | NUR ---
pt to IR
--- NOTE | 2018-08-13 08:11 | NUR ---
pt returned from IR
--- NOTE | 2018-08-13 08:12 | NUR ---
pt upright on gurney awake & more comfortable, "able to breathe easier", responds approp to staff, NAD, comfort measures provided, friend at BS, call light within reach.
--- NOTE | 2018-08-13 08:56 | NUR ---
report given to Ally ELKINS
--- NOTE | 2018-08-13 09:22 | NUR ---
PT STATES FEELING BETTER AFTER LP. HOSPICE STAFF AT BEDSIDE
[2018-08-13] MEDS ORDERED: SODIUM CHLORIDE FLUSH 10ML SYR IVF ONE (10:30)
--- NOTE | 2018-08-13 10:45 | NUR ---
MD AT BEDSIDE SPEAKING TO PT ABOUT PERITONEAL FLUID TEST RESULTS AND WHETHER PT WANTS TO REMAIN OFF HOSPICE AND BE ADMITTED
[2018-08-13] MEDS ORDERED: CEFTRIAXONE PMX 2GM/50ML 50 ML IV ONE (11:00)
[2018-08-13 11:03] LABS: INTERNATIONAL NORMALIZED RATIO 1.14 (0.93-1.1); PROTHROMBIN TIME 11.9 Seconds (9.6-11.5)
[2018-08-13 11:05] LABS: ALANINE AMINOTRANSFERASE 75 U/L (12-78); ALBUMIN 2.3 g/dL (3.4-5.0); ANION GAP 6 mmol/L (5-15); CALCIUM 7.5 mg/dL (8.5-10.1); CHLORIDE 105 mmol/L (98-107); CREATININE 0.58 mg/dL (0.7-1.3)
[2018-08-13 11:07] LABS: ALKALINE PHOSPHATASE 103 U/L (45-117); BILIRUBIN,TOTAL 3.3 mg/dL (0.2-1.0); TOTAL PROTEIN 5.3 g/dL (6.4-8.2)
[2018-08-13] MEDS ORDERED: CEFTRIAXONE PMX 2GM/50ML 50 ML ONE (11:17)
[2018-08-13 11:19] LABS: MEAN CORPUSCULAR HEMOGLOBIN 28.1 pg (27.5-34.5); MEAN CORPUSCULAR VOLUME 82.6 fL (81-97); RED BLOOD COUNT 4.59 x10^6/uL (4.38-5.82); RED CELL DISTRIBUTION WIDTH 18.8 % (9.4-14.8)
[2018-08-13 11:23] LABS: BASOPHILS # (AUTO) 0.01 x10^3/uL (0-0.1); BASOPHILS % (AUTO) 1 % (0-1); EOSINOPHILS # (AUTO) 0.06 x10^3/uL (0-0.4); EOSINOPHILS % (AUTO) 2 % (1-7); LYMPHOCYTES # (AUTO) 0.63 x10^3/uL (1-3.4); LYMPHOCYTES % (AUTO) 23 % (22-44); MD SCAN; MEAN PLATELET VOLUME 8.3 fL (7.4-10.4); MONOCYTES # (AUTO) 0.37 x10^3/uL (0.2-0.8); MONOCYTES % (AUTO) 13 % (2-9); NEUTROPHILS # (AUTO) 1.73 x10^3/uL (1.8-6.8); NEUTROPHILS % (AUTO) 62 % (42-75); PLATELET COUNT 97 x10^3/uL (130-400)
--- NOTE | 2018-08-13 12:57 | NUR ---
RESTING WITH EYES CLOSED
--- NOTE | 2018-08-13 14:35 | NUR ---
HOSPITALIST AT BEDSIDE EXAMINING PT. PROVIDED LUNCH TRAY
--- NOTE | 2018-08-13 14:58 | NUR ---
OFF FLOOR TO RADIOLOGY
--- NOTE | 2018-08-13 14:59 | NUR ---
PT WITH DEEDEE, DENIED BY [facility] AT [facility] AND VANES[facility] AT [facility]
[2018-08-13] MEDS ORDERED: ONDANSETRON 2MG/ML, 2ML IVPush PRN (15:00)
--- NOTE | 2018-08-13 15:09 | NUR ---
REPORT TO ZAIDA ELKINS 4TH FLOOR.
[2018-08-13] MEDS ORDERED: METRONIDAZOLE PMX 500MG/100ML 100 ML ONE (15:12)
[2018-08-13] MEDS: METRONIDAZOLE PMX 500MG/100ML 100 ML IV SCH (15:18)
[2018-08-13] MEDS ORDERED: OXYcodone 5 MG/5 ML ORAL.SOL UDC PO PRN (15:30)
[2018-08-13] MEDS ORDERED: LORazepam 1MG TABLET PO PRN (15:30)
[2018-08-13] MEDS: POTASSIUM CHLORIDE 20 MEQ TAB.ER.PRT PO SCH ×4 (15:30→20:30)
[2018-08-13 16:01] LABS: HEMOGLOBIN A1C 10.5 % (4.2-6.3)
[2018-08-13 16:38] VITALS: BP 127/83
[2018-08-13] MEDS ORDERED: ALBU90AE INH (18:05)
[2018-08-13] MEDS: ENOXAPARIN 40 MG/0.4 ML SQ SCH (18:06)
[2018-08-13] MEDS: INSULIN LISPRO 100 UNITS/ML, PEN SQ-INSULIN SCH ×2 (18:22→20:11)
[2018-08-13] MEDS ORDERED: ALBUTEROL HFA 90 MCG/SPRAY INH PRN (18:30)
[2018-08-13] MEDS: LACTULOSE 20 GM/30 ML UDC PO SCH ×2 (20:29→20:31)
[2018-08-13] MEDS: METHADONE 10 MG TABLET PO SCH (20:30)
[2018-08-13 21:11] VITALS: BP 131/72
[2018-08-13 21:53] LABS: AMPHETAMINE SCREEN, URINE Positive (Negative); BARBITURATE SCREEN, URINE Negative (Negative); BENZODIAZEPINE SCREEN, URINE Negative (Negative); CANNABINOID SCREEN, URINE Negative (Negative); COCAINE SCREEN, URINE Negative (Negative); METHADONE SCREEN, URINE Negative (Negative); OPIATE SCREEN, URINE Negative (Negative)
[2018-08-14] MEDS: METRONIDAZOLE PMX 500MG/100ML 100 ML IV SCH ×2 (00:17→07:28)
[2018-08-14 03:38] VITALS: BP 111/69
[2018-08-14 04:53] LABS: MEAN CORPUSCULAR HGB CONC 33.5 g/dL (33.2-36.2); MEAN CORPUSCULAR VOLUME 83.6 fL (81-97); MEAN PLATELET VOLUME 8.3 fL (7.4-10.4); PLATELET COUNT 109 x10^3/uL (130-400); RED BLOOD COUNT 4.64 x10^6/uL (4.38-5.82); RED CELL DISTRIBUTION WIDTH 19.3 % (9.4-14.8)
[2018-08-14 05:04] LABS: ALBUMIN 2.2 g/dL (3.4-5.0); ANION GAP 3 mmol/L (5-15); CALCIUM 7.4 mg/dL (8.5-10.1); CHLORIDE 109 mmol/L (98-107)
[2018-08-14 05:09] LABS: ALANINE AMINOTRANSFERASE 73 U/L (12-78); ALKALINE PHOSPHATASE 112 U/L (45-117); BILIRUBIN,TOTAL 1.3 mg/dL (0.2-1.0); CREATININE 0.65 mg/dL (0.7-1.3)
[2018-08-14 05:59] LABS: BASOPHILS # (AUTO) 0.02 x10^3/uL (0-0.1); BASOPHILS % (AUTO) 1 % (0-1); EOSINOPHILS # (AUTO) 0.13 x10^3/uL (0-0.4); EOSINOPHILS % (AUTO) 5 % (1-7); LYMPHOCYTES % (AUTO) 24 % (22-44); MD SCAN; MONOCYTES # (AUTO) 0.38 x10^3/uL (0.2-0.8); MONOCYTES % (AUTO) 13 % (2-9); NEUTROPHILS # (AUTO) 1.67 x10^3/uL (1.8-6.8); NEUTROPHILS % (AUTO) 58 % (42-75)
[2018-08-14] MEDS: INSULIN LISPRO 100 UNITS/ML, PEN SQ-INSULIN SCH ×5 (07:00→20:43)
[2018-08-14 07:24] VITALS: BP 121/80
[2018-08-14] MEDS: METHADONE 10 MG TABLET PO SCH ×2 (07:47→20:41)
[2018-08-14] MEDS: LACTULOSE 20 GM/30 ML UDC PO SCH ×3 (07:47→20:43)
[2018-08-14] MEDS ORDERED: VANCOMYCIN PMX 1GM/200ML 200 ML IV ONE (10:00)
[2018-08-14] MEDS ORDERED: VANCOMYCIN PER PHARMACY MC PRN (10:00)
[2018-08-14] MEDS ORDERED: CEFTRIAXONE PMX 2GM/50ML 50 ML IV SCH (11:00)
[2018-08-14] MEDS: ERTAPENEM 1 GM in SODIUM CHLORIDE 0.9% 50 ML IV SCH (11:08)
[2018-08-14] MEDS ORDERED: PHARMACOKINETIC MONITORING MC PRN (12:00)
[2018-08-14] MEDS ORDERED: VANCOMYCIN 1,600 MG in SODIUM CHLORIDE 0.9% 250 ML IV ONE (12:00)
[2018-08-14 12:36] VITALS: BP 124/62
[2018-08-14] MEDS: ENOXAPARIN 40 MG/0.4 ML SQ SCH (17:08)
[2018-08-14 20:16] VITALS: BP 130/85
[2018-08-15] MEDS: VANCOMYCIN 1,500 MG in SODIUM CHLORIDE 0.9% 250 ML IV SCH ×2 (00:36→11:57)
[2018-08-15 01:43] VITALS: BP 123/84
[2018-08-15 06:52] VITALS: BP 126/79
[2018-08-15 08:51] LABS: ANION GAP 7 mmol/L (5-15); CALCIUM 8.1 mg/dL (8.5-10.1); CHLORIDE 107 mmol/L (98-107)
[2018-08-15 08:53] LABS: CREATININE 0.95 mg/dL (0.7-1.3)
[2018-08-15 09:15] LABS: HEMOGLOBIN A1C 10.6 % (4.2-6.3)
[2018-08-15] MEDS: LACTULOSE 20 GM/30 ML UDC PO SCH ×2 (09:32→20:34)
[2018-08-15] MEDS: INSULIN LISPRO 100 UNITS/ML, PEN SQ-INSULIN SCH ×4 (09:33→20:33)
[2018-08-15] MEDS: POTASSIUM CHLORIDE 20 MEQ TAB.ER.PRT PO SCH (09:34)
[2018-08-15] MEDS: GLIMEPIRIDE 1 MG TABLET PO SCH (09:34)
[2018-08-15] MEDS: FUROSEMIDE 40 MG TABLET PO SCH (09:35)
[2018-08-15] MEDS: SPIRONOLACTONE 50 MG TABLET PO SCH ×2 (09:35→20:33)
[2018-08-15] MEDS: METHADONE 10 MG TABLET PO SCH ×2 (09:36→20:33)
[2018-08-15] MEDS: ERTAPENEM 1 GM in SODIUM CHLORIDE 0.9% 50 ML IV SCH (10:40)
[2018-08-15 12:45] VITALS: BP 123/74
[2018-08-15] MEDS: ENOXAPARIN 40 MG/0.4 ML SQ SCH ×2 (18:20→18:24)
[2018-08-15 20:10] VITALS: BP 138/85
[2018-08-15] MEDS: INSULIN GLARGINE 100 UNITS/ML, PEN SQ-INSULIN SCH (20:32)
[2018-08-16] MEDS: VANCOMYCIN 1,500 MG in SODIUM CHLORIDE 0.9% 250 ML IV SCH ×2 (00:07→12:24)
[2018-08-16 01:45] VITALS: BP 144/85
[2018-08-16 05:52] LABS: ALBUMIN 2.6 g/dL (3.4-5.0); ANION GAP 6 mmol/L (5-15); CALCIUM 8.2 mg/dL (8.5-10.1); CHLORIDE 105 mmol/L (98-107)
[2018-08-16 05:56] LABS: ALANINE AMINOTRANSFERASE 85 U/L (12-78); ALKALINE PHOSPHATASE 108 U/L (45-117); BILIRUBIN,TOTAL 1.7 mg/dL (0.2-1.0); CREATININE 0.63 mg/dL (0.7-1.3); TOTAL PROTEIN 5.9 g/dL (6.4-8.2)
[2018-08-16 07:04] VITALS: BP 140/79
[2018-08-16] MEDS: FUROSEMIDE 40 MG TABLET PO SCH (10:00)
[2018-08-16] MEDS: GLIMEPIRIDE 1 MG TABLET PO SCH (10:00)
[2018-08-16] MEDS: POTASSIUM CHLORIDE 20 MEQ TAB.ER.PRT PO SCH (10:00)
[2018-08-16] MEDS: LACTULOSE 20 GM/30 ML UDC PO SCH ×2 (10:00→21:00)
[2018-08-16] MEDS: SPIRONOLACTONE 50 MG TABLET PO SCH ×2 (10:01→21:29)
[2018-08-16] MEDS: INSULIN LISPRO 100 UNITS/ML, PEN SQ-INSULIN SCH ×4 (10:01→21:30)
[2018-08-16] MEDS: METHADONE 10 MG TABLET PO SCH ×2 (10:13→21:00)
[2018-08-16] MEDS: ERTAPENEM 1 GM in SODIUM CHLORIDE 0.9% 50 ML IV SCH (11:18)
[2018-08-16 12:52] VITALS: BP 138/76
[2018-08-16] MEDS ORDERED: POTASSIUM CHLORIDE 20 MEQ TAB.ER.PRT PO ONE (16:00)
[2018-08-16] MEDS ORDERED: FUROSEMIDE 40 MG/4 ML IV ONE (16:00)
[2018-08-16] MEDS: ENOXAPARIN 40 MG/0.4 ML SQ SCH (18:35)
[2018-08-16 21:11] VITALS: BP 115/72
[2018-08-16] MEDS: INSULIN GLARGINE 100 UNITS/ML, PEN SQ-INSULIN SCH (21:30)
[2018-08-16] MEDS: VANCOMYCIN 1,600 MG in SODIUM CHLORIDE 0.9% 250 ML IV SCH (23:35)
[2018-08-17 01:43] VITALS: BP 108/67
[2018-08-17 08:19] VITALS: BP 118/73
[2018-08-17] MEDS ORDERED: SPIR50TA PO (08:56)
[2018-08-17] MEDS ORDERED: LORA2TAB PO (08:56)
[2018-08-17] MEDS ORDERED: FURO40TA6 PO (08:56)
[2018-08-17] MEDS ORDERED: GLIP5TAB10 PO (08:56)
[2018-08-17] MEDS ORDERED: AMOX1TAB64 PO (08:56)
[2018-08-17] MEDS ORDERED: POTA20TA6 PO (08:56)
[2018-08-17] MEDS: GLIMEPIRIDE 1 MG TABLET PO SCH (09:11)
[2018-08-17] MEDS: LACTULOSE 20 GM/30 ML UDC PO SCH ×2 (09:11→09:21)
[2018-08-17] MEDS: SPIRONOLACTONE 50 MG TABLET PO SCH (09:12)
[2018-08-17] MEDS: POTASSIUM CHLORIDE 20 MEQ TAB.ER.PRT PO SCH (09:12)
[2018-08-17] MEDS: INSULIN LISPRO 100 UNITS/ML, PEN SQ-INSULIN SCH ×2 (09:15→11:42)
[2018-08-17] MEDS ORDERED: POTASSIUM CHLORIDE 20 MEQ TAB.ER.PRT PO ONE (09:30)
[2018-08-17] MEDS ORDERED: FUROSEMIDE 40 MG/4 ML IV ONE (09:30)
[2018-08-17] MEDS ORDERED: LIDOCAINE-MPF 1%, 5ML ONE (10:26)
[2018-08-17] MEDS: ERTAPENEM 1 GM in SODIUM CHLORIDE 0.9% 50 ML IV SCH (11:19)
[2018-08-17] MEDS: METHADONE 10 MG TABLET PO SCH (11:19)
[2018-08-17] MEDS: FUROSEMIDE 40 MG TABLET PO SCH (11:19)
[2018-08-17] MEDS: VANCOMYCIN 1,600 MG in SODIUM CHLORIDE 0.9% 250 ML IV SCH (11:58)
[2018-08-17 14:17] VITALS: BP 113/75
== END 2018-08-17 16:15 | disposition home or self-care (01) | DRG 871 ==
LOC: ED 07:38 → SUATTDRO 11:12 → EDIP 14:41 → 4WST 15:26 → DCLOUNGE 08-17 15:47
PROVIDERS: ADMIT Internal Medicine; ATTEND Internal Medicine
PROC: 0W9G3ZZ Drainage of Peritoneal Cavity, Percutaneous Approach (ICD-10-PCS; principal; 2018-08-13)
DX: A41.9 Sepsis, unspecified organism (principal); E43 Unspecified severe protein-calorie malnutrition; K65.2 Spontaneous bacterial peritonitis; D61.818 Other pancytopenia; R18.8 Other ascites; B18.2 Chronic viral hepatitis C; E11.9 Type 2 diabetes mellitus without complications; E87.6 Hypokalemia; F10.21 Alcohol dependence, in remission; F15.90 Other stimulant use, unspecified, uncomplicated; I10 Essential (primary) hypertension; K72.90 Hepatic failure, unspecified without coma; K74.60 Unspecified cirrhosis of liver; Z79.4 Long term (current) use of insulin; Z80.0 Family history of malignant neoplasm of digestive organs; Z68.25 Body mass index [BMI] 25.0-25.9, adult; Z87.891 Personal history of nicotine dependence; Z91.19 Patient's noncompliance with other medical treatment and regimen
CPT/HCPCS: 36415; 49083; 80048; 80053; 80202; 80307; 82042; 82140; 82962; 83036; 83605; 83615; 83735; 84100; 84443; 85025; 85610; 85730; 87040; 87070; 87205; 89051; 96365; G0378; J0696; J1335; J1650; J1940; J2405; J3370; J1815; J7050

== ENCOUNTER 2018-08-26 11:37 | Inpatient (IN) | payer MEDICAID ==
[~2018-08-26] VITALS: Ht 175.3 cm; Wt 74.2 kg
[~2018-08-26 11:37] MED LIST changes: +ALBU90AE INH; +AMOX1TAB64 PO; +GLIP5TAB10 PO; +POTA20TA6 PO; +SPIR50TA PO
--- NOTE | 2018-08-26 11:41 | NUR ---
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 EMS DENIES SEEING BLOOD ON SCENE. C/O LLQ PAIN WORSE WITH PALPATION OR MOVEMENT. PER EMS, "100 FENTANYL AND 4 OF ZOFRAN HELPED FOR "1 MIN." 20 G PIV LAC". PER EMS, "HE HAS THE POOP AND SENSE OF DOOM". FAMILY IN WAITING ROOM.
--- NOTE | 2018-08-26 11:44 | NUR ---
PERACENTESIS TWO DAYS AGO WITH 1 AND 1/2 LITER FLUID OFF, PER EMS.
[2018-08-26] MEDS ORDERED: SODIUM CHLORIDE 0.9% 1,000ML IVBOLUS ONE (12:00)
[2018-08-26] MEDS ORDERED: LORazepam 2 MG/ML, 1ML IVPush ONE (12:00)
[2018-08-26] MEDS ORDERED: ZIPRASIDONE 20 MG INJ IM ONE ×2 (12:00→12:07)
[2018-08-26] MEDS ORDERED: LORazepam 2 MG/ML, 1ML ONE (12:07)
--- NOTE | 2018-08-26 12:21 | NUR ---
Patient very anxious. A&Ox4, but also mumbling incoherently. Meds admin. No other needs.
[2018-08-26] MEDS ORDERED: PLEASE ENTER HEIGHT AND WEIGHT MC SCH (12:30)
[2018-08-26 12:35] LABS: ALANINE AMINOTRANSFERASE 68 U/L (12-78); ALBUMIN 2.9 g/dL (3.4-5.0); ANION GAP 10 mmol/L (5-15); CALCIUM 8.4 mg/dL (8.5-10.1); CHLORIDE 108 mmol/L (98-107); CREATININE 0.78 mg/dL (0.7-1.3)
[2018-08-26 12:37] LABS: ALKALINE PHOSPHATASE 114 U/L (45-117); BILIRUBIN,TOTAL 1.9 mg/dL (0.2-1.0); TOTAL PROTEIN 5.7 g/dL (6.4-8.2)
--- NOTE | 2018-08-26 12:49 | NUR ---
Cristi (son) at bedside. His cell number is [phone].
[2018-08-26 12:52] LABS: MEAN CORPUSCULAR HEMOGLOBIN 27.7 pg (27.5-34.5); MEAN CORPUSCULAR HGB CONC 32.8 g/dL (33.2-36.2); MEAN CORPUSCULAR VOLUME 84.6 fL (81-97); MEAN PLATELET VOLUME 7.6 fL (7.4-10.4); PLATELET COUNT 107 x10^3/uL (130-400); RED BLOOD COUNT 4.68 x10^6/uL (4.38-5.82); RED CELL DISTRIBUTION WIDTH 16.8 % (9.4-14.8)
--- NOTE | 2018-08-26 12:53 | NUR ---
Patient now sleeping. RR = 14. 95% 2 L NC.
[2018-08-26 12:58] LABS: MD YES
[2018-08-26 13:01] LABS: LYMPH#(MANUAL) 0.36 x10^3/uL (1-3.4); LYMPHS% (MANUAL) 21 % (22-44); MONOS% (MANUAL) 6 % (2-9); REACTIVE LYMPHS # (MANUAL) 0.07 x10^3/uL (0-0); REACTIVE LYMPHS % (MANUAL) 4 % (0-0); SEG#(MANUAL) 1.17 x10^3/uL (1.8-6.8); SEGS% (MANUAL) 69 % (42-75)
[2018-08-26 13:02] LABS: <PLATELET ESTIMATE> DECREASED; <PLT MORPHOLOGY> NORMAL PLT MORPH; ANISOCYTOSIS 1+; POLYCHROMASIA 1+
--- NOTE | 2018-08-26 13:57 | NUR ---
Patient continues to sleep. RR = 12.
--- NOTE | 2018-08-26 15:10 | NUR ---
Patient arousable to verbal command, but mostly resting. MD updated.
--- NOTE | 2018-08-26 16:21 | NUR ---
TASK RN: PT RESTING IN BED AT THIS TIME. NADN, VSS AT THIS TIME.
--- NOTE | 2018-08-26 17:05 | NUR ---
Dr. Hoty at bedside evaluating patient and discussing POC with sister.
[2018-08-26] MEDS ORDERED: OXYcodone IR 5MG TABLET PO PRN (17:30)
[2018-08-26] MEDS ORDERED: DEXTROSE 50%, 50ML SYRINGE IVPush PRN (17:30)
[2018-08-26] MEDS ORDERED: HALOPERIDOL 5 MG/ML IM PRN (17:30)
[2018-08-26] MEDS ORDERED: hydrALAzine 20 MG/ML, 1ML IVPush PRN (17:30)
[2018-08-26] MEDS ORDERED: morphine SULFATE 10 MG/ML, 1ML IVPush PRN (17:30)
[2018-08-26] MEDS ORDERED: DEXTROSE 4 GM TAB.CHEW PO PRN (17:30)
[2018-08-26] MEDS ORDERED: ONDANSETRON 2MG/ML, 2ML IVPush PRN (17:30)
[2018-08-26] MEDS ORDERED: GLUCAGON 1 MG IM PRN (17:30)
[2018-08-26] MEDS ORDERED: OMNIPAQUE 350 MG/ML, 100ML BOTTLE ONE (18:03)
--- NOTE | 2018-08-26 18:30 | NUR ---
Patient unable to follow commands for taking PO meds. Lactulose held at this time.
[2018-08-26] MEDS: LACTULOSE 20 GM/30 ML UDC PO SCH ×2 (19:22→20:37)
--- NOTE | 2018-08-26 19:41 | NUR ---
Attempted report. RN unavailable.
--- NOTE | 2018-08-26 19:53 | NUR ---
Report to BRITTNI Ng.
[2018-08-26 20:24] VITALS: BP 113/83
[2018-08-26] MEDS: INSULIN LISPRO 100 UNITS/ML, PEN SQ-INSULIN SCH (20:30)
[2018-08-26] MEDS: SODIUM CHLORIDE FLUSH 10ML SYR IVF SCH (20:38)
[2018-08-26] MEDS: ALBUTEROL SULFATE 90 MCG INH SCH (20:51)
[2018-08-26 22:39] LABS: AMPHETAMINE SCREEN, URINE Positive (Negative); BARBITURATE SCREEN, URINE Negative (Negative); BENZODIAZEPINE SCREEN, URINE Negative (Negative); CANNABINOID SCREEN, URINE Negative (Negative); COCAINE SCREEN, URINE Negative (Negative); METHADONE SCREEN, URINE Negative (Negative); OPIATE SCREEN, URINE Negative (Negative)
[2018-08-27 02:14] VITALS: BP 121/75
[2018-08-27] MEDS: INSULIN LISPRO 100 UNITS/ML, PEN SQ-INSULIN SCH ×2 (07:00→12:14)
[2018-08-27 07:04] LABS: ALBUMIN 2.3 g/dL (3.4-5.0); ANION GAP 9 mmol/L (5-15); CALCIUM 7.8 mg/dL (8.5-10.1); CHLORIDE 107 mmol/L (98-107)
[2018-08-27 07:07] LABS: MEAN CORPUSCULAR HEMOGLOBIN 28.1 pg (27.5-34.5); MEAN CORPUSCULAR HGB CONC 32.8 g/dL (33.2-36.2); MEAN CORPUSCULAR VOLUME 85.6 fL (81-97); PLATELET COUNT 110 x10^3/uL (130-400); RED BLOOD COUNT 4.09 x10^6/uL (4.38-5.82); RED CELL DISTRIBUTION WIDTH 17.2 % (9.4-14.8)
[2018-08-27 07:08] LABS: ALANINE AMINOTRANSFERASE 60 U/L (12-78); ALKALINE PHOSPHATASE 111 U/L (45-117); BILIRUBIN,TOTAL 1.1 mg/dL (0.2-1.0); CREATININE 0.79 mg/dL (0.7-1.3); TOTAL PROTEIN 5.1 g/dL (6.4-8.2)
[2018-08-27 07:35] VITALS: BP 138/78
[2018-08-27 07:37] LABS: MD YES
[2018-08-27 07:40] LABS: ANISOCYTOSIS 1+; EOS#(MANUAL) 0.06 x10^3/uL (0.0-0.4); EOS% (MANUAL) 3 % (1-7); LYMPH#(MANUAL) 0.46 x10^3/uL (1-3.4); LYMPHS% (MANUAL) 24 % (22-44); MONOS#(MANUAL) 0.15 x10^3/uL (0.3-2.7); MONOS% (MANUAL) 8 % (2-9); REACTIVE LYMPHS # (MANUAL) 0.06 x10^3/uL (0-0); REACTIVE LYMPHS % (MANUAL) 3 % (0-0); SEG#(MANUAL) 1.18 x10^3/uL (1.8-6.8); SEGS% (MANUAL) 62 % (42-75)
[2018-08-27 07:41] LABS: <PLATELET ESTIMATE> DECREASED; <PLT MORPHOLOGY> NORMAL PLT MORPH
[2018-08-27] MEDS: SODIUM CHLORIDE FLUSH 10ML SYR IVF SCH (08:30)
[2018-08-27] MEDS: ALBUTEROL SULFATE 90 MCG INH SCH (08:30)
[2018-08-27] MEDS: LACTULOSE 20 GM/30 ML UDC PO SCH (09:00)
== END 2018-08-27 12:49 | disposition left against medical advice (07) | DRG 91 ==
LOC: ED 16:39 → EDIP 16:48 → 3NE 17:36 → 4EST 20:41
PROVIDERS: ADMIT Internal Medicine; ATTEND Internal Medicine
DX: G92 Toxic encephalopathy (principal); E43 Unspecified severe protein-calorie malnutrition; D61.818 Other pancytopenia; K62.5 Hemorrhage of anus and rectum; F11.23 Opioid dependence with withdrawal; F15.23 Other stimulant dependence with withdrawal; F10.10 Alcohol abuse, uncomplicated; E11.9 Type 2 diabetes mellitus without complications; Z53.21 Procedure and treatment not carried out due to patient leaving prior to being seen by health care provider; B18.2 Chronic viral hepatitis C; I45.81 Long QT syndrome; K74.60 Unspecified cirrhosis of liver; Z80.0 Family history of malignant neoplasm of digestive organs; Z87.891 Personal history of nicotine dependence; Z68.24 Body mass index [BMI] 24.0-24.9, adult
CPT/HCPCS: 36415; 70450; 74177; 80053; 80307; 82140; 82962; 83690; 85025; 93005; 96360; 96361; 96374; G0378; J3486; Q9967; J1815; J2060; J7030

== ENCOUNTER 2018-10-05 22:40 | Emergency (ER) | payer MEDICAID ==
[~2018-10-05] VITALS: Ht 175.3 cm; Wt 74.5 kg
--- NOTE | 2018-10-05 22:55 | NUR ---
FIRST CONTACT WITH PT. PT C/O LEFT LEG PAIN X3 DAYS WORRIED IT MIGHT BE DVT, RECENT CELLULITIS IN THAT LEG. NO HX OF CLOTS. SENSATION INTACT. DORSALIS PEDAL PULSE +2 BILATERALLY. PT'S AOX4. RESPS EVEN AND UNLABORED. BP/SPO2 MONITORS IN PLACE. CALL LIGHT WITHIN REACH. EDMD AT BEDSIDE TO EVALUATE.
--- NOTE | 2018-10-05 23:06 | NUR ---
PT TO US NOW.
--- NOTE | 2018-10-05 23:31 | NUR ---
PT BACK TO ROOM FROM US.
[2018-10-06 01:14] VITALS: BP 150/89
== END 2018-10-06 01:15 | disposition home or self-care (01) ==
LOC: ED 23:05
DX: M66.0 Rupture of popliteal cyst (principal); M25.562 Pain in left knee; I10 Essential (primary) hypertension; E11.9 Type 2 diabetes mellitus without complications; Z86.19 Personal history of other infectious and parasitic diseases
CPT/HCPCS: 99284

== ENCOUNTER 2018-10-11 23:20 | Inpatient (IN) | payer MEDICAID ==
[~2018-10-11] VITALS: Ht 175.3 cm; Wt 68.3 kg
[2018-10-11] MEDS ORDERED: SODIUM CHLORIDE FLUSH 10ML SYR IVF ONE (23:30)
--- NOTE | 2018-10-11 23:39 | NUR ---
FIRST CONTACT WITH PT. PT HERE STATING THAT HE HAS BEEN VOMITING BLOOD 1 HOUR AGO, 2 EPISODES. ALSO COMPLAINING PAIN BACK OF L LEG, SERJIO CYCST. HX CIRRHOSIS STATES CAUSED BY HEP C. PT STATES THAT HE WAS ON HOSPICE BUT COMES TO ER SO NO LONGER ON HOSPICE. PALE, WEAK. PT'S AOX4. RESPS EVEN AND UNLABORED. ALL MONITORS IN PLACE. CALL LIGHT WITHIN REACH.
[2018-10-11 23:48] LABS: BASOPHILS # (AUTO) 0.02 x10^3/uL (0-0.1); BASOPHILS % (AUTO) 0 % (0-1); EOSINOPHILS # (AUTO) 0.07 x10^3/uL (0-0.4); EOSINOPHILS % (AUTO) 2 % (1-7); LYMPHOCYTES % (AUTO) 22 % (22-44); MD NO; MEAN CORPUSCULAR HEMOGLOBIN 25.4 pg (27.5-34.5); MEAN CORPUSCULAR HGB CONC 32.6 g/dL (33.2-36.2); MEAN PLATELET VOLUME 7.5 fL (7.4-10.4); MONOCYTES # (AUTO) 0.45 x10^3/uL (0.2-0.8); MONOCYTES % (AUTO) 10 % (2-9); NEUTROPHILS # (AUTO) 3.02 x10^3/uL (1.8-6.8); NEUTROPHILS % (AUTO) 66 % (42-75); PLATELET COUNT 130 x10^3/uL (130-400); RED BLOOD COUNT 3.93 x10^6/uL (4.38-5.82); RED CELL DISTRIBUTION WIDTH 15.1 % (9.4-14.8)
[2018-10-11 23:57] LABS: INTERNATIONAL NORMALIZED RATIO 1.17 (0.93-1.1); PROTHROMBIN TIME 12.2 Seconds (9.6-11.5)
[2018-10-11 23:58] LABS: ALANINE AMINOTRANSFERASE 55 U/L (12-78); ALBUMIN 2.5 g/dL (3.4-5.0); ANION GAP 7 mmol/L (5-15); CHLORIDE 110 mmol/L (98-107)
[2018-10-12 00:01] LABS: ALKALINE PHOSPHATASE 87 U/L (45-117); BILIRUBIN,TOTAL 2.2 mg/dL (0.2-1.0); TOTAL PROTEIN 5.5 g/dL (6.4-8.2)
[2018-10-12] MEDS ORDERED: OCTREOTIDE 500 MCG in SODIUM CHLORIDE 0.9% 249 ML IV PRN (00:06)
[2018-10-12] MEDS ORDERED: PANTOPRAZOLE 80 MG in SODIUM CHLORIDE 0.9% 50 ML IVPB ONE (00:06)
[2018-10-12] MEDS ORDERED: PANTOPRAZOLE 80 MG in SODIUM CHLORIDE 0.9% 100 ML IV SCH (00:06)
--- NOTE | 2018-10-12 00:20 | NUR ---
MED ORDERED FROM PHARMACY AT THIS TIME.
--- NOTE | 2018-10-12 00:45 | NUR ---
PROTONIX BOLUS INFUSING AT THIS TIME.
--- NOTE | 2018-10-12 01:08 | NUR ---
SANDOSTATIN INFUSING AT THIS TIME. PT TOLERATED WELL.
--- NOTE | 2018-10-12 01:25 | NUR ---
LUNCH RN: SPOKE WITH CLYDE DIAZ. OKAYED FOR OCTREOTIDE AND PROTONIX TO GO AT Y SITE OF IV.
--- NOTE | 2018-10-12 01:33 | NUR ---
Lunch RN: oral swabs provided. Pt informed that he is npo due to diagnosis.
--- NOTE | 2018-10-12 02:11 | NUR ---
REPORT GIVEN TO FERNANDEZ ELKINS. ALL QUESTIONS ANSWERED.
[2018-10-12 02:44] VITALS: BP 134/80
[2018-10-12] MEDS ORDERED: ONDANSETRON 2MG/ML, 2ML IVPush PRN (03:00)
[2018-10-12] MEDS ORDERED: LORazepam INTENSOL 2 MG/ML SL PRN (03:00)
[2018-10-12] MEDS ORDERED: PROMETHAZINE 25 MG/ML, 1ML IM PRN (03:00)
[2018-10-12] MEDS ORDERED: morphine SULFATE 10 MG/ML, 1ML IV PRN (06:00)
[2018-10-12] MEDS: MORPHINE SULFATE 4 MG/ML, 1ML IVPush PRN ×2 (06:16→09:13)
[2018-10-12 06:31] VITALS: BP 144/90
[2018-10-12] MEDS: POTASSIUM CHLORIDE 20 MEQ TAB.ER.PRT PO SCH (08:47)
[2018-10-12] MEDS: FUROSEMIDE 40 MG TABLET PO SCH (08:47)
[2018-10-12] MEDS: LACTULOSE 10 GM/15 ML UDC PO SCH ×2 (08:47→21:00)
[2018-10-12] MEDS: SODIUM CHLORIDE FLUSH 10ML SYR IVF SCH ×2 (09:13→21:00)
[2018-10-12 13:10] VITALS: BP 127/70
[2018-10-12 15:28] VITALS: BP 117/76
[2018-10-12 19:12] VITALS: BP 124/78
[2018-10-13 00:42] VITALS: BP 124/71
[2018-10-13] MEDS: POTASSIUM CHLORIDE 20 MEQ TAB.ER.PRT PO SCH ×2 (08:00→08:54)
[2018-10-13 08:17] VITALS: BP 117/76
[2018-10-13] MEDS: LACTULOSE 10 GM/15 ML UDC PO SCH ×3 (08:54→21:00)
[2018-10-13] MEDS: FUROSEMIDE 40 MG TABLET PO SCH ×2 (08:55→09:00)
[2018-10-13] MEDS: SODIUM CHLORIDE FLUSH 10ML SYR IVF SCH ×2 (08:55→21:27)
[2018-10-13 12:42] VITALS: BP 139/70
[2018-10-13 19:25] VITALS: BP 126/73
[2018-10-13] MEDS: MORPHINE SULFATE 4 MG/ML, 1ML IVPush PRN (21:27)
[2018-10-14 01:08] VITALS: BP 149/82
[2018-10-14 07:27] VITALS: BP 153/89
[2018-10-14] MEDS: FUROSEMIDE 40 MG TABLET PO SCH (08:06)
[2018-10-14] MEDS: OXYcodone IR 5MG TABLET PO PRN ×3 (08:06→22:14)
[2018-10-14] MEDS: POTASSIUM CHLORIDE 20 MEQ TAB.ER.PRT PO SCH (08:06)
[2018-10-14] MEDS: LACTULOSE 10 GM/15 ML UDC PO SCH ×2 (08:07→22:04)
[2018-10-14] MEDS: SODIUM CHLORIDE FLUSH 10ML SYR IVF SCH ×2 (08:07→22:03)
[2018-10-14 10:50] LABS: BASOPHILS # (AUTO) 0.01 x10^3/uL (0-0.1); BASOPHILS % (AUTO) 0 % (0-1); EOSINOPHILS # (AUTO) 0.05 x10^3/uL (0-0.4); EOSINOPHILS % (AUTO) 2 % (1-7); LYMPHOCYTES # (AUTO) 0.66 x10^3/uL (1-3.4); LYMPHOCYTES % (AUTO) 22 % (22-44); MD NO; MEAN CORPUSCULAR HEMOGLOBIN 24.6 pg (27.5-34.5); MEAN CORPUSCULAR HGB CONC 32.3 g/dL (33.2-36.2); MEAN CORPUSCULAR VOLUME 76.2 fL (81-97); MEAN PLATELET VOLUME 7.2 fL (7.4-10.4); MONOCYTES # (AUTO) 0.34 x10^3/uL (0.2-0.8); MONOCYTES % (AUTO) 11 % (2-9); NEUTROPHILS # (AUTO) 1.95 x10^3/uL (1.8-6.8); NEUTROPHILS % (AUTO) 65 % (42-75); PLATELET COUNT 139 x10^3/uL (130-400); RED BLOOD COUNT 3.91 x10^6/uL (4.38-5.82); RED CELL DISTRIBUTION WIDTH 15.9 % (9.4-14.8)
[2018-10-14 10:57] LABS: ALBUMIN 2.6 g/dL (3.4-5.0); ANION GAP 8 mmol/L (5-15); CHLORIDE 110 mmol/L (98-107)
[2018-10-14 11:02] LABS: % IRON SATURATION 7 % (20-55); ALANINE AMINOTRANSFERASE 48 U/L (12-78); ALKALINE PHOSPHATASE 89 U/L (45-117); BILIRUBIN,TOTAL 1.7 mg/dL (0.2-1.0); CREATININE 0.73 mg/dL (0.7-1.3); IRON LEVEL 20 mcg/dL (65-175); TOTAL IRON BINDING CAPACITY 301 mcg/dL (250-450); TOTAL PROTEIN 5.6 g/dL (6.4-8.2)
[2018-10-14 13:50] VITALS: BP 156/79
[2018-10-14 19:24] VITALS: BP 147/76
[2018-10-15] MEDS: MORPHINE SULFATE 4 MG/ML, 1ML IVPush PRN ×3 (01:57→18:14)
[2018-10-15 02:55] VITALS: BP 155/84
[2018-10-15] MEDS: OXYcodone IR 5MG TABLET PO PRN ×3 (05:28→21:44)
[2018-10-15 07:06] VITALS: BP 151/85
[2018-10-15] MEDS: LACTULOSE 10 GM/15 ML UDC PO SCH ×2 (09:28→21:45)
[2018-10-15] MEDS: SODIUM CHLORIDE FLUSH 10ML SYR IVF SCH ×2 (09:28→21:45)
[2018-10-15] MEDS: POTASSIUM CHLORIDE 20 MEQ TAB.ER.PRT PO SCH (09:28)
[2018-10-15 12:28] VITALS: BP 150/84
[2018-10-15 19:33] VITALS: BP 151/78
[2018-10-16 00:53] VITALS: BP 152/83
[2018-10-16] MEDS: MORPHINE SULFATE 4 MG/ML, 1ML IVPush PRN ×2 (03:57→09:50)
[2018-10-16] MEDS: OXYcodone IR 5MG TABLET PO PRN (06:07)
[2018-10-16 07:08] VITALS: BP 139/75
[2018-10-16] MEDS: POTASSIUM CHLORIDE 20 MEQ TAB.ER.PRT PO SCH (09:49)
[2018-10-16] MEDS: LACTULOSE 10 GM/15 ML UDC PO SCH (09:49)
[2018-10-16] MEDS: SODIUM CHLORIDE FLUSH 10ML SYR IVF SCH (09:50)
== END 2018-10-16 17:06 | disposition hospice, home (50) | DRG 433 ==
LOC: ED 23:58 → EDIP 10-12 01:49 → 4EST 10-12 02:35
PROVIDERS: ADMIT Internal Medicine; ATTEND Internal Medicine
DX: K70.9 Alcoholic liver disease, unspecified (principal); K92.0 Hematemesis; R18.8 Other ascites; R04.2 Hemoptysis; B18.2 Chronic viral hepatitis C; D50.9 Iron deficiency anemia, unspecified; F19.10 Other psychoactive substance abuse, uncomplicated; E11.9 Type 2 diabetes mellitus without complications; E87.6 Hypokalemia; I10 Essential (primary) hypertension; K74.60 Unspecified cirrhosis of liver; Z80.0 Family history of malignant neoplasm of digestive organs; Z87.891 Personal history of nicotine dependence; Z91.19 Patient's noncompliance with other medical treatment and regimen
CPT/HCPCS: 36415; 80053; 82728; 83540; 83550; 83690; 85025; 85610; 85730; 86850; 86900; 93005; 96365; 99285; G0378; J2354; C9113; J2270; J7050

== ENCOUNTER 2018-10-21 15:31 | Inpatient (IN) | payer MEDICAID, OTHER ==
[~2018-10-21] VITALS: Ht 175.3 cm; Wt 71.0 kg
[2018-10-31 12:45] VITALS: BP 106/61
== END 2018-10-31 18:16 | disposition home or self-care (01) | DRG 313 ==
LOC: ED 20:08 → EDIP 20:12 → 4NOR 21:55
PROVIDERS: ADMIT Family Medicine; ATTEND Family Medicine
PROC: 0SBD0ZZ Excision of Left Knee Joint, Open Approach (ICD-10-PCS; principal; 2018-10-22)
PROC: 0JDP0ZZ Extraction of Left Lower Leg Subcutaneous Tissue and Fascia, Open Approach (ICD-10-PCS; 2018-10-22)
PROC: 02HV33Z Insertion of Infusion Device into Superior Vena Cava, Percutaneous Approach (ICD-10-PCS; 2018-10-28)
PROC: B5181ZA Fluoroscopy of Superior Vena Cava using Low Osmolar Contrast, Guidance (ICD-10-PCS; 2018-10-28)
PROC: B548ZZA Ultrasonography of Superior Vena Cava, Guidance (ICD-10-PCS; 2018-10-28)
DX: M00.9 Pyogenic arthritis, unspecified (principal); E43 Unspecified severe protein-calorie malnutrition; K72.90 Hepatic failure, unspecified without coma; K74.60 Unspecified cirrhosis of liver; E11.649 Type 2 diabetes mellitus with hypoglycemia without coma; B18.2 Chronic viral hepatitis C; D63.8 Anemia in other chronic diseases classified elsewhere; D72.819 Decreased white blood cell count, unspecified; F12.90 Cannabis use, unspecified, uncomplicated; F17.210 Nicotine dependence, cigarettes, uncomplicated; I10 Essential (primary) hypertension; L02.416 Cutaneous abscess of left lower limb; Z51.5 Encounter for palliative care; M71.22 Synovial cyst of popliteal space [Baker], left knee; Z80.0 Family history of malignant neoplasm of digestive organs; E11.69 Type 2 diabetes mellitus with other specified complication; M86.68 Other chronic osteomyelitis, other site
CPT/HCPCS: 36415; 36573; 80048; 80053; 82140; 82272; 82728; 82947; 82962; 83036; 83540; 83550; 83605; 83735; 85025; 85045; 85610; 85651; 85730; 86140; 87040; 87070; 87075; 87077; 87176; 87186; 87205; 88305; 96374; 96376; 99285; G0378; J0690; J1170; J1756; J2250; J2405; J2704; J3010; J3370; Q9967; C1751; J1815; J2270; J7050

== ENCOUNTER 2018-11-16 09:27 | Inpatient (IN) | payer MEDICAID, OTHER ==
[~2018-11-16] VITALS: Ht 175.3 cm; Wt 68.7 kg
[2018-11-21 07:24] VITALS: BP 105/54
== END 2018-11-21 12:10 | disposition left against medical advice (07) | DRG 344 ==
LOC: ED 11:24 → EDIP 11:25 → ED 11:40 → UNDOADMIN 11:50 → EDIP 11:50 → 4NOR 12:51
PROVIDERS: ADMIT Internal Medicine; ATTEND Internal Medicine
DX: M00.9 Pyogenic arthritis, unspecified (principal); D61.811 Other drug-induced pancytopenia; K76.6 Portal hypertension; E11.65 Type 2 diabetes mellitus with hyperglycemia; E83.51 Hypocalcemia; M71.22 Synovial cyst of popliteal space [Baker], left knee; B19.20 Unspecified viral hepatitis C without hepatic coma; K70.30 Alcoholic cirrhosis of liver without ascites; D63.8 Anemia in other chronic diseases classified elsewhere; I10 Essential (primary) hypertension; T36.1X5A Adverse effect of cephalosporins and other beta-lactam antibiotics, initial encounter; Y92.89 Other specified places as the place of occurrence of the external cause; Z91.19 Patient's noncompliance with other medical treatment and regimen; Z87.891 Personal history of nicotine dependence; Z53.21 Procedure and treatment not carried out due to patient leaving prior to being seen by health care provider
CPT/HCPCS: 20611; 36415; 80048; 80053; 80069; 82962; 83036; 83735; 85025; 85651; 86038; 86140; 86200; 86431; 87522; 87806; 96365; G0378; J0690; J1885; J3490; G0475